=== PATIENT | female | born 1950 | race African-American/Black ===

== ENCOUNTER 2017-05-04 20:07 | Emergency (ER) | payer MEDICARE, OTHER ==
[~2017-05-04 20:07] MED LIST: *UNABLE1; ACCUNEB INH; AMITIZA8 MCG PO; BL FLAX SEED1000 MG PO; CLARIT10 PO; KAPIDEX60 MG PO; LEVAQUIN750 MG PO; MEDROLPAK4 PO; MILK THISTLE PO; MUCINEX600 MG PO; NORV25 PO; NYS500UDL PO; PERCOCET1 TA2 PO; PRILOSEC40 MG PO; PROAIR HFA INH; SPIRIVA INH; SUCR PO; SYMBICORT 160/41 INH INH; TESS PO; VITAMIN D3 PO
[2017-05-04 21:13] LABS: BASOPHILS 0.2 %; BASOPHILS ABSOLUTE 0.02 10/3/uL (0.0-0.16); EOSINOPHILS 0.9 %; HEMATOCRIT 35.4 % (36.0-48.0); HEMOGLOBIN 11.2 g/dL (12.0-16.0); IMMATURE GRANULOCYTES 0.2 %; IMMATURE GRANULOCYTES ABSOLUTE 0.02 10/3/uL (0.0-0.11); LYMPHOCYTES 24.1 %; LYMPHOCYTES ABSOLUTE 2.66 10/3/uL (0.67-4.30); MEAN CORPUSCULAR HEMOGLOB 30.3 pg (26.0-34.0); MEAN CORPUSCULAR VOLUME 95.7 fL (80-100); MEAN PLATELET VOLUME 9.2 fL (9.2-13.0); MONOCYTES 7.4 %; MONOCYTES ABSOLUTE 0.81 10/3/uL (0.21-1.20); NEUTROPHILS 67.2 %; NEUTROPHILS ABSOLUTE 7.41 10/3/uL (2.02-8.40); PLATELET COUNT 258 10/3/uL (150-400); RBC DISTRIBUTION WIDTH 12.7 % (12.0-16.0)
[2017-05-04 21:16] LABS: MANUAL DIFF NO %; MEAN CORPUS HGB CONC 31.6 g/dL (32.0-36.0)
[2017-05-04 21:26] LABS: INTERNATIONAL NORMAL RATI 1.2 UNITS (-); PARTIAL THROMBO TIME 34.9 SEC (22.5-37.2); PROTIME (NOT ORD) 14.9 SEC (12.0-14.5)
[2017-05-04 21:30] LABS: BUN (BLOOD UREA NITROGEN) 9 MG/DL (6-23); CALCIUM, SERUM 8.9 MG/DL (8.5-10.4); CHEST PAIN PROFILE TAT 0 Hrs 20 Mins; CHLORIDE, SERUM 108 MMOL/L (96-112); CO2 (CARBON DIOXIDE) 29 MMOL/L (24-34); CREATININE 0.89 MG/DL (0.55-1.02); GFR AFRICAN AMERICAN 78 ML/MIN (>=60); GFR NON AFRICAN AMERICAN 67 ML/MIN (>=60); GLUCOSE, SERUM 169 MG/DL (60-99); POTASSIUM, SERUM 3.4 MMOL/L (3.5-5.3); SODIUM, SERUM 143 MMOL/L (135-148); TROPONIN I <0.02 NG/ML (<0.05)
== END 2017-05-05 00:15 | disposition home or self-care (01) ==
LOC: ER 20:07
PROVIDERS: Emergency Medicine
DX: J18.9 Pneumonia, unspecified organism (principal); J44.9 Chronic obstructive pulmonary disease, unspecified; F17.200 Nicotine dependence, unspecified, uncomplicated; K21.9 Gastro-esophageal reflux disease without esophagitis; Z86.19 Personal history of other infectious and parasitic diseases; Z88.8 Allergy status to other drugs, medicaments and biological substances; Z79.899 Other long term (current) drug therapy
CPT/HCPCS: 71010; 80048; 83735; 84484; 85025; 85610; 85730; 93005; 94640; 96365; 96375; 99285; J0456; J2930